=== PATIENT | male | born 1935 | race Caucasian/White ===

== ENCOUNTER 2022-03-13 17:51 | Inpatient (IN) | payer MEDICARE ==
[~2022-03-13] VITALS: Ht 188 cm; Wt 91.0 kg
[2022-03-13] VITALS (9 sets, daily range): BP systolic 88–128; BP diastolic 32–63
--- NOTE | 2022-03-13 18:00 | NUR ---
PATIENT TO ROOM FOR TRIAGE
[2022-03-13 18:21] LABS: HEMATOCRIT 45.8 % (39.0-50.0); HEMOGLOBIN 15.2 g/dl (14.0-18.0); IMMATURE GRANULOCYTES 0.2 % (0.0-5.0); MEAN CELL VOLUME 88.6 fL CALC (80.0-100.0); MEAN CORPUSCULAR HGB 29.4 pG CALC (26.0-32.0); MEAN CORPUSCULAR HGB CONC 33.2 g/dL CAL (32.0-36.0); NEUT# 3.97 thou/uL (1.82-7.42); RED BLOOD COUNT 5.17 mill/uL (4.70-6.10); RED CELL DISTRI WIDTH 13.3 % (11.5-15.5)
--- NOTE | 2022-03-13 18:25 | NUR ---
PT LIVES WITH HIS BROTHER WHO WAS ADMITTED WITH COVID. ABG DONE, PT AT REST IN THE STRETCHER.
[2022-03-13 18:39] LABS: ALBUMIN 4.3 g/dL (3.2-5.0); ALKALINE PHOSPHATASE 71 u/l (38-126); ANION GAP 13 (6-22 (CALC)); BILIRUBIN, TOTAL 0.6 mg/dL (0.0-1.4); BUN 13 mg/dL (8-23); BUN/CREATININE RATIO 10 (12-20 (CALC)); CARBON DIOXIDE 26 mmol/l (22-30); CHLORIDE 101 mmol/l (95-108); CREATININE 1.3 mg/dL (0.7-1.3); GFR FOR AFR.AMER. > 60 ML/MIN (>=60 (CALC)); GFR OTHER RACES 53 ML/MIN (>=60 (CALC)); POTASSIUM 4.3 mmol/l (3.5-5.1); SGOT/AST 26 u/l (19-48); SODIUM 136 mmol/l (137-146)
--- NOTE | 2022-03-13 19:10 | NUR ---
RECEIVED REPORT FROM TWILA HARRIS. PT RESTING ON STRETCHER. O2 VIA NC AT 2L NO DISTRESS.
[2022-03-13] MEDS ORDERED: CALCIU1 PO (20:02)
[2022-03-13] MEDS ORDERED: CO Q-10300 MG PO (20:05)
[2022-03-13] MEDS ORDERED: BUSPIRONE5 MG PO (20:06)
[2022-03-13] MEDS ORDERED: ASPIRIN81 MG PO (20:06)
[2022-03-13] MEDS ORDERED: SINGULAIR10 MG PO ×2 (20:08→20:17)
[2022-03-13] MEDS ORDERED: FISH OIL1000 MG PO (20:09)
[2022-03-13] MEDS ORDERED: APPLE CIDE1 PO (20:09)
[2022-03-13] MEDS ORDERED: D350 MCG PO (20:10)
[2022-03-13] MEDS ORDERED: CRESTOR20 MG PO (20:13)
[2022-03-13] MEDS ORDERED: DONEPEZIL10 MG PO (20:14)
[2022-03-13] MEDS ORDERED: MEMANTINE HYDRO10 MG PO (20:15)
[2022-03-13] MEDS ORDERED: ALLER-TEC PO (20:16)
[2022-03-13] MEDS ORDERED: B121000 MCG PO (20:16)
--- NOTE | 2022-03-13 21:20 | NUR ---
PT AGREES WITH PLAN FOR ADMISSION. TELE BOX 16 IN USE.
--- NOTE | 2022-03-13 21:37 | NUR ---
Admission Note Report Given to: TWILA THOMAS Transported by: X Wheelchair Stretcher Transported with: X Nurse Transporter X Patent IV X O2 X Senior Enterprise Architect Location: ICU X MS2 PT TAKEN TO FLOOR 2124. ROOM ASSIGNMENT CHANGED ON ARRIVAL TO FLOOR. NURSE MITRA NOT AVAILABLE FOR REPORT. REPORT GIVEN TO TWILA THOMAS.
--- NOTE | 2022-03-13 22:00 | NUR ---
PT ARRIVED TO MED SURG VIA WC ACCOMPANIED BY ED NURSE. PT DENIES SOB AT THIS TIME, OXYGEN SAT READING 91% ON 2LNC. OXYGEN INCREASED TO 3L, 02 SAT 93% AT THIS TIME. V/S ASSESSED AND PT ORIENTED TO THE ROOM. IVF ADMINISTERED ORDERS PROVIDE.
--- NOTE | 2022-03-13 23:37 | NUR ---
PT AWAKE AND PROVIDED A PHONE FOR CALL TRANSFER. DENIES ANY OTHER NEEDS. HE IS AWAKE AND WATCHING TV. NO DISTRESS OBSERVED
[2022-03-14] VITALS (9 sets, daily range): BP systolic 82–137; BP diastolic 28–72
--- NOTE | 2022-03-14 01:00 | NUR ---
PT CALLED TO USE RESTROOM. ASSISTED PT STANDBY ONLY TO RESTROOM. LARGE LOOSE STOOL OUTPUT. PT CALLED WHEN FINISHED IN RESTROOM, PATRON ATTENDANT ASSISTED PT BACK TO THE BED.
[2022-03-14 05:46] LABS: IMMATURE GRANULOCYTES 0.3 % (0.0-5.0); MEAN CELL VOLUME 88.6 fL CALC (80.0-100.0); MEAN CORPUSCULAR HGB 29.3 pG CALC (26.0-32.0); MEAN CORPUSCULAR HGB CONC 33.1 g/dL CAL (32.0-36.0); NEUT# 2.57 thou/uL (1.82-7.42); RED BLOOD COUNT 4.47 mill/uL (4.70-6.10); RED CELL DISTRI WIDTH 13.4 % (11.5-15.5)
[2022-03-14 05:55] LABS: HEMATOCRIT 39.6 % (39.0-50.0); HEMOGLOBIN 13.1 g/dl (14.0-18.0)
[2022-03-14 06:32] LABS: ALKALINE PHOSPHATASE 50 u/l (38-126); ANION GAP 10 (6-22 (CALC)); BUN 17 mg/dL (8-23); BUN/CREATININE RATIO 14 (12-20 (CALC)); CARBON DIOXIDE 24 mmol/l (22-30); CHLORIDE 104 mmol/l (95-108); CREATININE 1.2 mg/dL (0.7-1.3); GFR FOR AFR.AMER. > 60 ML/MIN (>=60 (CALC)); GFR OTHER RACES 58 ML/MIN (>=60 (CALC)); POTASSIUM 4.9 mmol/l (3.5-5.1); SGOT/AST 24 u/l (19-48); SODIUM 134 mmol/l (137-146); TOTAL PROTEIN 5.9 g/dL (6.3-8.2)
[2022-03-14 06:48] LABS: ALBUMIN 3.4 g/dL (3.2-5.0); BILIRUBIN, TOTAL 0.3 mg/dL (0.0-1.4)
--- NOTE | 2022-03-14 08:00 | NUR ---
GOT REPORT FROM FOREST SCIENTIST NURSE. PATIENT ASSESSED. ALERT AND ORIENTATED. MEDICATIONS GIVEN. PATIENT HAS CALL LIGHT AND BED SIDE TABLE WITH IN REACH. NO QUESTIONS OR CONCERNS AT THIS TIME. ADVISED PATIENT TO CALL IF NEEDING ANYTHING.
--- NOTE | 2022-03-14 12:00 | NUR ---
PATIENT IS RESTING IN BED NO SXS OF DISTRESS. CALL LIGHT WITH IN REACH. ADVISED TO CALL IF NEEDING ANYTHING. PATIENT VERBALIZED UNDERSTANDING.
--- NOTE | 2022-03-14 16:00 | NUR ---
PATIENT IS RESTING IN BED NO SXS OF DISTRESS. CALL LIGHT WITH IN REACH. ADVISED TO CALL IF NEEDING ANYTHING. PATIENT VERBALIZED UNDERSTANDING.
--- NOTE | 2022-03-14 19:00 | NUR ---
REPORT RECEIVED FROM Janette VELASCO RN
--- NOTE | 2022-03-14 20:45 | NUR ---
ASSESMENT COMPLETED A THIS TIME. PATENT ALERT AND ORIENTED X3, HX OF DEMENTIA, MINIMAL CONFUSION PRESENT AT THIS TIME. NORMAL HEART RATE. CLEAR /DIMMINSHED LUNG SOUNDS, CURRENTLY ON 3L VIA NASAL CANULLA. PATIENT HAS REMOVED CANNULA BUT REMAINS SATURATING 93%. ACTIVE BOWEL SOUNDS, LAST REPORTED BOWEL MOVEMENT 03/12. STATES THIS IS NORMAL FOR HIM, BUT ALSO REPORTS HAVING HAD LOOSE STOOLS THESE PAST FEW DAYS. #20 LAC FLUSHED AND PATENT, CURRENTLY INFUSING NS AT 50ML/HR. PLAN OF CARE REVIEWED WITH PATIENT, EDUCATION PROVIDED ON MEDCIATIONS. CALL LIGHT AND BEDSIDE TABLE WITHIN REACH.
--- NOTE | 2022-03-14 20:51 | NUR ---
MEDICATIONS ADMINISTERED PER EMAR, SEE EMAR.
--- NOTE | 2022-03-14 21:52 | NUR ---
VITALS IN RESPONSE TO ED CALL REGARDING LOW HR FOLLOWS. HR 44, B/P 118/58, SPO2% 93%. PATIENT STATES HE FEELS "FINE". PLACED O2 BACK ON PATIENT, SATURATION QUICKLY RECOVERED TO 96%.
--- NOTE | 2022-03-14 22:00 | NUR ---
CALL RECEIVED FROM ED REAGRDING PATIENTS LOW HR. PATIENT CURRENTLY RUNNING SB 44. V/S OBTAINED A THIS TIME, DR PEREIRA NOTIFIED OF PATIENTS LOW HR. NOTIFIED DR OF PATIENTS HR THROUGHT DAY, PATIENT HAS BEEN ELOISA THROUGHT DAY. PER , HOLD REMDESIVIR.
[2022-03-15] VITALS (9 sets, daily range): BP systolic 119–153; BP diastolic 59–72
--- NOTE | 2022-03-15 00:10 | NUR ---
PATIENT UP TO THE BATHROOM WITH STANDBY ASSITANCE PROVIDED. WIPES PROVIDED TO PATIENT ER PATIENT REQUEST. CALL LIGHT AND BESDIDE TABLE WITHIN REACH.
--- NOTE | 2022-03-15 03:43 | NUR ---
TLEMETRY BATTERY CHABGED WITH NO CHANGE IN BATTERY LIFE, ED UC NOTIFIED. WILL CHANEG TELEMETRY BOX AND BATTERY.
--- NOTE | 2022-03-15 03:47 | NUR ---
PATIENT COMPLAINING OF BLOODY STOOLS. NO STOOLS HAVE BEEN WITNESSED BY STAFF, PATIENT ASKED TO NOT FLUSH, BECAUSE WE MAY NEED A STOOL SAMPLE TO R/O BLOOD.
[2022-03-15 05:25] LABS: HEMATOCRIT 39.6 % (39.0-50.0); HEMOGLOBIN 13.1 g/dl (14.0-18.0); MEAN CELL VOLUME 88.6 fL CALC (80.0-100.0); MEAN CORPUSCULAR HGB 29.3 pG CALC (26.0-32.0); MEAN CORPUSCULAR HGB CONC 33.1 g/dL CAL (32.0-36.0); RED BLOOD COUNT 4.47 mill/uL (4.70-6.10); RED CELL DISTRI WIDTH 13.3 % (11.5-15.5)
[2022-03-15 06:09] LABS: ALBUMIN 3.4 g/dL (3.2-5.0); ALKALINE PHOSPHATASE 57 u/l (38-126); ANION GAP 9 (6-22 (CALC)); BILIRUBIN, TOTAL 0.2 mg/dL (0.0-1.4); BUN 21 mg/dL (8-23); BUN/CREATININE RATIO 19 (12-20 (CALC)); CARBON DIOXIDE 24 mmol/l (22-30); CHLORIDE 107 mmol/l (95-108); CREATININE 1.1 mg/dL (0.7-1.3); GFR FOR AFR.AMER. > 60 ML/MIN (>=60 (CALC)); GFR OTHER RACES > 60 ML/MIN (>=60 (CALC)); POTASSIUM 4.6 mmol/l (3.5-5.1); SGOT/AST 25 u/l (19-48); SODIUM 136 mmol/l (137-146); TOTAL PROTEIN 5.9 g/dL (6.3-8.2)
--- NOTE | 2022-03-15 08:00 | NUR ---
patient is a/ox3, able to make needs known to staff. c/o discomfort on his buttocks, no reddness, or open areas on buttocks. informed him if he got out of bed to the chair it may relieve it. he stated he would like ot shower after breakfast, clean sheets and towels place in room, waiting on a friend to bring in his shampoo. diminshed lung sounds. active bowel movements. soft non tender abdomen. no edema present at this time. strong pulses, o2 4l nc, 98% o2 sats, denies chest pain or SOB. safety measures in place. call light in reach. will cotninue to monitor per hospital's policy.
--- NOTE | 2022-03-15 11:34 | NUR ---
PATIENT TAKING A SHOWER, CLEAN SHEETS ON BED. SAFETY MEASURES IN PLACE. CALL LIGHT IN REACH.
--- NOTE | 2022-03-15 18:00 | NUR ---
PATIENT IS SITTING UP EATING A FRUIT.
--- NOTE | 2022-03-15 19:05 | NUR ---
REPORT RECEIVED FROM Jose J BELLO RN
--- NOTE | 2022-03-15 20:00 | NUR ---
ASSSEMENT COMPLETED AT THIS TIME
--- NOTE | 2022-03-15 20:36 | NUR ---
MEDICATIONS ADMINISTERED PER EAMR, SEE EMAR.
[2022-03-16] VITALS (8 sets, daily range): BP systolic 113–134; BP diastolic 59–61
--- NOTE | 2022-03-16 | NUR ---
PATIENT VITALS ASSESED AT THIS TIME. PATIETN CONTINUES TO BE BRADYCARDIC. RUNNING SB IN THE 40S AND HIGH 30'S. PATIENT ASYMPTOMATIC AND DENIES FEELING LIGHT HEADED OR WEAK. WILL CONTINUE TOMONITOR PATIENT HR.
--- NOTE | 2022-03-16 03:10 | NUR ---
NOTIFIED DR PEREIRA REGARDING PATIENTS STATUS. HR REMAINS ELOISA. PER MD CONTINUE TO MONITOR PATIENT, IT PATIENT HR DROPS BELOW 30 , TRANSFER PATIENT TO ICU. CURRENTLY PATIENT IS 46
--- NOTE | 2022-03-16 07:50 | NUR ---
PT RESTING IN LOW FOWLERS POSITION. A/OX3 NIGHT REPORT PT HISTORY OF DEMENTIA. IV SITE TO [facility]. HEART RHYTHM SOUND DIMISHED.. RESPIRATIONS UNLABORED. BOWEL SOUNDS ACTIVE. PT DENIES ADDITONAL NEEDS ALL SAFETY PRECAUTIONS IN PLACE.
[2022-03-16 09:46] LABS: HEMOGLOBIN 13.5 g/dl (14.0-18.0); MEAN CELL VOLUME 86.8 fL CALC (80.0-100.0); MEAN CORPUSCULAR HGB 29.3 pG CALC (26.0-32.0); MEAN CORPUSCULAR HGB CONC 33.8 g/dL CAL (32.0-36.0); NEUT# 3.64 thou/uL (1.82-7.42); RED BLOOD COUNT 4.61 mill/uL (4.70-6.10); RED CELL DISTRI WIDTH 13.5 % (11.5-15.5)
[2022-03-16 10:48] LABS: ANION GAP 11 (6-22 (CALC)); BUN 20 mg/dL (8-23); BUN/CREATININE RATIO 20 (12-20 (CALC)); CARBON DIOXIDE 23 mmol/l (22-30); CHLORIDE 106 mmol/l (95-108); GFR FOR AFR.AMER. > 60 ML/MIN (>=60 (CALC)); GFR OTHER RACES > 60 ML/MIN (>=60 (CALC)); POTASSIUM 4.1 mmol/l (3.5-5.1); SODIUM 136 mmol/l (137-146)
--- NOTE | 2022-03-16 12:42 | NUR ---
ON CONTINUOUS PULSE OX TO BE MONITORED PER TELE . PT ON 2L NC.
--- NOTE | 2022-03-16 15:52 | NUR ---
PT DENIES ADDITIONAL NEEDS AT THE TIME ALL SAFETY PRECAUTIONS IN PLACE.
--- NOTE | 2022-03-16 20:15 | NUR ---
PT STARTED WALKING OUT OF THE ROOM TO 'WALK THE HALLS". HE WAS ASKED TO STAY IN HIS ROOM, EXPLAINING TO HIM REASONS DUE TO COVID POS. HE WAS VERY COOPERATIVE AND UNDERSTANDING AND JUST VERBALIZED BEING "STIR CRAZY AND BORED." SNACK AND DRINK PROVIDED.
--- NOTE | 2022-03-16 20:40 | NUR ---
PT ASSESSED AND MEDICATED ORDERS PROVIDE. LUNG SOUNDS REMAIN COURSE UPPER BILAT. OXYGEN 3L NC, SAT LEVEL AT 94%
[2022-03-17] VITALS (71 sets, daily range): BP systolic 86–211; BP diastolic 42–170
--- NOTE | 2022-03-17 03:15 | NUR ---
ED NOTIFIED UNIT THAT PT'S HR IS 33 SUSTAINING. PHYSICIAN CALLED, ORDERS FOR TRANSFER TO ICU FOR CLOSE MONITORING. PT TRANSFERRED TO ICU. STABLE AT TIME OF ARRIVAL.
--- NOTE | 2022-03-17 06:27 | NUR ---
SHIFT ASSESSMENT - TO ALERT AND ORIENTED. FOLLOWING COMMANDS. WAS TRANSFERRED TO ICU OVERNIGHT DUE TO SEVERE BRADYCARDIA. BLOOD PRESSURE WITHIN NORMAL LIMITS. PT ON 3L NC, O2 SAT 92%. PT DOES NOT LOOK TO BE IN ANY DISTRESS. PT DENIES PAIN AT THIS HA. VITAL SIGNS ARE WITHIN NORMAL LIMITS.
[2022-03-17 06:49] LABS: HEMATOCRIT 37.7 % (39.0-50.0); HEMOGLOBIN 12.5 g/dl (14.0-18.0); IMMATURE GRANULOCYTES 0.2 % (0.0-5.0); MEAN CELL VOLUME 87.7 fL CALC (80.0-100.0); MEAN CORPUSCULAR HGB 29.1 pG CALC (26.0-32.0); MEAN CORPUSCULAR HGB CONC 33.2 g/dL CAL (32.0-36.0); NEUT# 3.11 thou/uL (1.82-7.42); RED BLOOD COUNT 4.3 mill/uL (4.70-6.10); RED CELL DISTRI WIDTH 13.4 % (11.5-15.5)
[2022-03-17 07:20] LABS: ALBUMIN 3.3 g/dL (3.2-5.0); ALKALINE PHOSPHATASE 45 u/l (38-126); BUN 21 mg/dL (8-23); BUN/CREATININE RATIO 19 (12-20 (CALC)); CHLORIDE 104 mmol/l (95-108); CREATININE 1.1 mg/dL (0.7-1.3); GFR FOR AFR.AMER. > 60 ML/MIN (>=60 (CALC)); GFR OTHER RACES > 60 ML/MIN (>=60 (CALC)); POTASSIUM 4.3 mmol/l (3.5-5.1); SGOT/AST 25 u/l (19-48); SODIUM 137 mmol/l (137-146); TOTAL PROTEIN 5.6 g/dL (6.3-8.2)
--- NOTE | 2022-03-17 07:23 | NUR ---
RECEIVED REPORT FROM TWILA Park. CHECKED IN ON JOHN, AX0=4. PATIENT RESTING IN SITTING POSTITON, NC REPOSTIONED AND LEADS IN PLACE. BED IN LOWEST POSITION AND LOCKED. CALL LIGHT WITHIN REACH.
[2022-03-17 07:54] LABS: ANION GAP 8 (6-22 (CALC)); BILIRUBIN, TOTAL 0.4 mg/dL (0.0-1.4); CARBON DIOXIDE 29 mmol/l (22-30)
--- NOTE | 2022-03-17 08:18 | NUR ---
CARDIAC CONSULT REQUESTED AT DR. PUCKETT'S OFFICE 08:15.
--- NOTE | 2022-03-17 10:00 | NUR ---
PATIENT ALERT AND ORIENTED WATCHING TELEVISON. CALL LIGHT WITHIN REACH BED LOCKED IN LOWEST POSITION.
--- NOTE | 2022-03-17 10:30 | NUR ---
PATIENT REMOVED IV, NEW 20G N LFA PLACED, RUNNING NS@50
--- NOTE | 2022-03-17 11:05 | NUR ---
PATIENT ALERT AND ORIENTED, RUNNING IV FLUIDS. IV PATENT.BED LOCKED AND IN LOWEST POSITION. CALL LIGHT WITHIN REACH.
--- NOTE | 2022-03-17 11:25 | NUR ---
Treatment held due to medical status and transfer to ICU. Will follow per MD order to resume PT.
--- NOTE | 2022-03-17 12:35 | NUR ---
PATIENT HAS REMOVED 2ND IV SINCE SHIFT. PER MD, WILL DC FLUIDS AND PLACE ANOTHER IV. PATIENT AXO=4 RESTLESS BUT COOPERATIVE. SITTING UP IN CHAIR FOR LUNCH. CALL LIGHT WITHIN REACH.
--- NOTE | 2022-03-17 13:35 | NUR ---
PATIENT SITTING IN CHAIR. RT PERFORMED WALK TEST AND PATIENT WENT BACK TO CHAIR. ALERT AND OREINTED, CALM AND COOPERATIVE. CALL LIGHT WITHIN REACH.
--- NOTE | 2022-03-17 16:00 | NUR ---
PATIENT BACK IN BED, PRIETO'S POSITION. A X O=3 CALM AND COOPERATIVE. BED LOCKED IN LOWEST POSITION. NC REPOSITIONED. PATIENT EDUCATED ON KEEPING NASAL CANNULA IN PLACE. CALL LIGHT WITHIN REACH.
--- NOTE | 2022-03-17 17:00 | NUR ---
PATIENT IN BED FOWLERS POSTION EATING. PATIENT REMOVED 3RD IV. AXO =3, BEHAVIOR IS RESTLESS AND IMPULSIVE. BED IN LOWEST POSITION AND LOCKED. CALL LIGHT WITHIN REACH.
--- NOTE | 2022-03-17 20:00 | NUR ---
PATIENT RESTING IN BED ALERT AND ORIENTED X 3 AT THIS TIME. PATIENT DENIES ANY PAIN AND O2 IS ON AT 3L AT THIS TIME SPO2 IS CURRENTLY 95%. PATIENT LUNG BURROUGHS ARE CLEAR IN UPPER AND DIMINISHED IN LOWER BURROUGHS. EGG SETTER IS READING SINUS ELOISA AT 46 AND BP IS CURRENTLY 122/65. DR. LOPEZ IS AWARE OF PATIENTS SINUS ELOISA STATUS AT THIS TIME. SIDERAILS ARE UP CALL LIGHT IS WIHTIN REACH. WILL CONTINUE TO MONITOR.
[2022-03-18] VITALS (57 sets, daily range): BP systolic 104–161; BP diastolic 51–122
--- NOTE | 2022-03-18 00:10 | NUR ---
PATIENT FOUND OUT OF BED ALERT AND ORIENTED X 3 PATIENT STATED HE IS TIRED OF "WIRES HOOKED TO HIM" PATIENT STARTED PULLING WORSTED WINDER WIRES OFF. PATIENT ASKED TO STOP AND ALLOW THIS NURSE TO HELP AND PATIENT BECAME AGGRESSIVE AND YELLING STATING "I DON'T KNOW WHY I HAVE TO HAVE THESE ON". PATIENT EDUCATED ON IMPORTANCE OF MONITORING HIS HEART RATE AND O2 PATIENT THEN AGREED TO CONTINUE WITH MONITORING IN PLACE. PATIENT REPOSTIONED IN BED SIDERAILS UP AND CALL LIGHT WITHIN REACH. 02 REMAINS ON AT 3L AND SPO2 IS CURRENTLY 98% AND PATIENT WORSTED WINDER READING SINUS ELOISA 36 WILL CONTINUE TO MONITOR.
--- NOTE | 2022-03-18 02:08 | NUR ---
PATIENT RESTING IN BED AT THIS TIME. CUSTOMER SERVICE OPERATOR SHOWING SINUS ELOISA AND HR IS 37 SPO2 CURRENTLY 97 % ON 3 LITERS. SIDERAIL ARE UP X 2 CALL LIGHT IS WITHIN REACH.
--- NOTE | 2022-03-18 04:09 | NUR ---
PATIENT RESTING IN BED WIHT EYES CLOSED RESPIRATIONS EASY AND UNLABORED AT THIS TIME. CARDIC MONTIOR IS READING SB HR OF 38. SIDERAILS ARE UP CALL LIGHT IS WITHIN REACH.
--- NOTE | 2022-03-18 06:00 | NUR ---
PATIENT ASSISTED TO BATHROOM AND RETURNED BACK TO BED AT THIS TIME. LOAN EXPEDITOR READING SINUS ELOISA AND HR OF 40 BP IS CURRENTLY 139/68 02 REMAINS ON AT 3 LITERS AND SPO2 IS CURRENTLY 96. PATIENT DENIES ANY PAIN AND OR NEEDS AT THIS TIME. SIDERAILS ARE UP CALL LIGHT NEAR WILL CONTINUE TO MONITOR.
[2022-03-18 06:40] LABS: HEMATOCRIT 41.1 % (39.0-50.0); HEMOGLOBIN 13.6 g/dl (14.0-18.0); IMMATURE GRANULOCYTES 0.2 % (0.0-5.0); MEAN CELL VOLUME 89.2 fL CALC (80.0-100.0); MEAN CORPUSCULAR HGB 29.5 pG CALC (26.0-32.0); MEAN CORPUSCULAR HGB CONC 33.1 g/dL CAL (32.0-36.0); NEUT# 3.2 thou/uL (1.82-7.42); RED BLOOD COUNT 4.61 mill/uL (4.70-6.10); RED CELL DISTRI WIDTH 13.3 % (11.5-15.5)
[2022-03-18 07:20] LABS: ALBUMIN 3.2 g/dL (3.2-5.0); ALKALINE PHOSPHATASE 43 u/l (38-126); ANION GAP 9 (6-22 (CALC)); BUN 21 mg/dL (8-23); BUN/CREATININE RATIO 24 (12-20 (CALC)); C-REACTIVE PROTEIN < 0.5 mg/dL (0-0.9); CARBON DIOXIDE 26 mmol/l (22-30); CHLORIDE 105 mmol/l (95-108); CREATININE 0.8 mg/dL (0.7-1.3); GFR FOR AFR.AMER. > 60 ML/MIN (>=60 (CALC)); GFR OTHER RACES > 60 ML/MIN (>=60 (CALC)); POTASSIUM 4.3 mmol/l (3.5-5.1); SGOT/AST 25 u/l (19-48); SODIUM 135 mmol/l (137-146); TOTAL PROTEIN 5.4 g/dL (6.3-8.2)
[2022-03-18 07:23] LABS: BILIRUBIN, TOTAL 0.6 mg/dL (0.0-1.4)
--- NOTE | 2022-03-18 09:13 | NUR ---
PT AWAKE, ALERT, ORIENTED X 3, NO COMPLAINTS. HR REMAINS IN THE 40s MOSTLY, BUT PT ASYMPTOMATIC. DR LOPEZ IN ROOM NOW.
--- NOTE | 2022-03-18 13:25 | NUR ---
PCXR DONE, PT UPDATED ON RESULTS. PT UP TO BSC, BM THIS MORNING. PT REMAINS ASYMPTOMATIC WITH HIS BRADYCARDIA.
--- NOTE | 2022-03-18 16:09 | NUR ---
PT PLEASED TO HAVE SPOKEN WITH HIS BROTHER VEEJAIDEN ON M/S. PT REMAINS IN NO DISTRESS. MEAL MENU PROVIDED FOR HIM TO HAVE MORE CHOICE IN HIS MEALS.
--- NOTE | 2022-03-18 17:21 | NUR ---
PT CONTINUES BRADYCARDIC AT RATE OF 38-40, COMPLETELY ASYMPTOMATIC. OXYGEN ARRIVES FROM [facility], PLACED IN ROOM.
--- NOTE | 2022-03-18 20:05 | NUR ---
PATIENT RESTING IN BED AT THIS TIME. PATIENT ALERT AND ORIENTED X 3 AND DENIES ANY PAIN. PATIENT PRESENTS WITH LUNG BURROUGHS CLEAR AND 02 ON AT 3L AND SPO2 IS CURRENTLY 91% AT THIS TIME. C.O.D. AUDIT CLERK IS READING SINUS ELOISA AND HR OF 51 BP IS CURRENTLY 141/73. PATIENT STATE WHEN ASKED DID YOUR RECEIVE A BATH TODAY PATIENT STATED "NO" BATH WAS OFFERED TO BE DONE AND PATIENT STATED " I WILL WAIT UNTIL TOMORROW". PATIENT PRESENTS WITHOUT SHORTNESS OF BREATH AND USING URINAL AT BEDSIDE AND CLEAR YELLOW URINE NOTED. SIDERAILS ARE UP CALL LIGHT IS WITHIN REACH WILL CONTINUE TO MONITOR.
--- NOTE | 2022-03-18 21:08 | NUR ---
PATIENT GIVEN 650MG OF TYLENOL AT THIS TIME DUE TO PATIENT STATING "I HAVE A HEADACHE AND MY PAIN LEVEL IS A 4 OUT OF PAIN SCALE OF 0-10. WILL CONTINUE TO MONITOR.
--- NOTE | 2022-03-18 22:01 | NUR ---
PATIENT RESTING IN BED AT THIS TIME STATES HIS HEADACHE IS GONE AT THIS TIME AND HIS PAIN IS A "0" ON THE PAIN SCALE OF 0-10. MD PEDIATRIC ALLERGIST IS READING SINUS ELOISA AND HR OF 41 BP IS CURRENTLY 128/54 O2 IS ON AT 3L AND SPO2 IS CURRENTLY 91%. SIDERAILS ARE UP CALL LIGHT IS WITHIN REACH.
[2022-03-19] VITALS (7 sets, daily range): BP systolic 111–135; BP diastolic 48–60
--- NOTE | 2022-03-19 00:08 | NUR ---
PATIENT RESTING IN BED DENIES ANY NEEDS SPO2 IS 96% ON 3L OF O2 VIA NASAL CANNULA. DENEIS ANY PAIN ALARM INSTALLATION TECHNICIAN READING SB AND HR OF 36 AND BP IS 117/48 WITH A MAP OF 71. SIDERAILS ARE UP CALL LIGHT IS WITHIN REACH.
--- NOTE | 2022-03-19 02:00 | NUR ---
PATIENT RESTING IN BED WIHT EYES CLOSED RESPIRATIONS EASY AND UNLABORED O2 ON 3L PULSE ON 95% BP IS 125/60 HYDRATE THICKENER OPERATOR SHOWING HR OF 39 AND SINUS ELOISA WILL CONTINUE TO MONITOR.
--- NOTE | 2022-03-19 03:58 | NUR ---
PATIENT AWAKE AT BEDSIDE AT THIS TIME. PATIENT DENIES ANY NEEDS CURRENTLY. O2 REMAINS IN PLACE AND ON 3L NASAL CANNULA. STOCK PATCHER READING SINUS ELOISA AND HR IS CURRENTLY 45. SIDERAILS ARE UP CALL LIGHT IS WIHTIN REACH.
--- NOTE | 2022-03-19 06:08 | NUR ---
PATIENT RESTING IN BED WITH EYES CLOSED RESPIRATIONS EASY AND UNLABORED. WATCH ASSEMBLY INSPECTOR READING SB AT 38 BP IS CURRENTLY 135/59 O2 REMAINS ON AT 2L NASAL CANNULA 91% SIDERAILS ARE UP CALL LIGHT IS WITHIN REACH.
[2022-03-19] MEDS ORDERED: DOXYCYCLINE HY100 MG PO (09:16)
[2022-03-19] MEDS ORDERED: DEXAMETHASON6 MG PO (09:16)
== END 2022-03-19 10:55 | disposition home or self-care (01) | DRG 177 ==
LOC: ED 17:51 → ED-I 19:57 → ED 20:33 → MS2 20:34 → ICU 03-17 04:00
PROVIDERS: Family Medicine; Nurse Practitioner; ADMIT Internal Medicine; ATTEND Internal Medicine
PROC: XW033E5 Introduction of Remdesivir Anti-infective into Peripheral Vein, Percutaneous Approach, New Technology Group 5 (ICD-10-PCS; principal; 2022-03-14)
DX: U07.1 COVID-19 (principal); J96.01 Acute respiratory failure with hypoxia; I10 Essential (primary) hypertension; F03.90 Unspecified dementia, unspecified severity, without behavioral disturbance, psychotic disturbance, mood disturbance, and anxiety; F41.9 Anxiety disorder, unspecified; R00.1 Bradycardia, unspecified; T37.5X5A Adverse effect of antiviral drugs, initial encounter; I25.10 Atherosclerotic heart disease of native coronary artery without angina pectoris; T36.3X5A Adverse effect of macrolides, initial encounter; I35.2 Nonrheumatic aortic (valve) stenosis with insufficiency; Z86.73 Personal history of transient ischemic attack (TIA), and cerebral infarction without residual deficits
CPT/HCPCS: J1650; Q9967

== ENCOUNTER 2022-07-10 11:34 | Emergency (ER) | payer MEDICARE ==
[~2022-07-10] VITALS: Ht 188 cm; Wt 75.0 kg
[~2022-07-10 11:34] MED LIST: ALLER-TEC PO; APPLE CIDE1 PO; ASPIRIN81 MG PO; B121000 MCG PO; BUSPIRONE5 MG PO; CALCIU1 PO; CO Q-10300 MG PO; CRESTOR20 MG PO; D350 MCG PO; DEXAMETHASON6 MG PO; DONEPEZIL10 MG PO; DOXYCYCLINE HY100 MG PO; FISH OIL1000 MG PO; MEMANTINE HYDRO10 MG PO; SINGULAIR10 MG PO
[2022-07-10 11:40] VITALS: BP 119/68
[2022-07-10 11:45] VITALS: BP 113/62
[2022-07-10 12:14] LABS: HEMATOCRIT 41.1 % (39.0-50.0); MEAN CELL VOLUME 88.4 fL CALC (80.0-100.0); MEAN CORPUSCULAR HGB 30.1 pG CALC (26.0-32.0); MEAN CORPUSCULAR HGB CONC 34.1 g/dL CAL (32.0-36.0); NEUT# 6.03 thou/uL (1.82-7.42); RED BLOOD COUNT 4.65 mill/uL (4.70-6.10); RED CELL DISTRI WIDTH 12.1 % (11.5-15.5)
[2022-07-10 12:26] LABS: ANION GAP 12 (6-22 (CALC)); BUN 15 mg/dL (8-23); BUN/CREATININE RATIO 14 (12-20 (CALC)); CARBON DIOXIDE 27 mmol/l (22-30); CHLORIDE 100 mmol/l (95-108); CREATININE 1.1 mg/dL (0.7-1.3); GFR FOR AFR.AMER. > 60 ML/MIN (>=60 (CALC)); GFR OTHER RACES > 60 ML/MIN (>=60 (CALC)); POTASSIUM 4.1 mmol/l (3.5-5.1); SGOT/AST 34 u/l (19-48); SODIUM 135 mmol/l (137-146)
[2022-07-10 12:28] LABS: ALBUMIN 4.2 g/dL (3.2-5.0); ALKALINE PHOSPHATASE 67 u/l (38-126); TOTAL PROTEIN 7.2 g/dL (6.3-8.2)
[2022-07-10 13:23] VITALS: BP 115/68
[2022-07-10 14:00] VITALS: BP 124/67
[2022-07-10 14:10] LABS: URINE BLOOD DIPSTICK SMALL (NEGATIVE); URINE GLUCOSE - DIPSTICK NEGATIVE (NEGATIVE); URINE KETONE TRACE mg/dL (NEGATIVE); URINE LEUK ESTERASE TRACE (NEGATIVE); URINE PH 5.5 (4.5-8.0); URINE PROTEIN - DIPSTICK NEGATIVE (NEG-TRACE); URINE SPECIFIC GRAVITY 1.025; URINE UROBILINOGEN - DIPSTICK 0.2 E.U./dL (0.2)
[2022-07-10 14:14] LABS: URINE BILIRUBIN - DIPSTICK SMALL (NEGATIVE); URINE COLOR DK. YELLOW; URINE NITRITE - DIPSTICK NEGATIVE (Negative)
[2022-07-10 14:15] LABS: URINE MUCUS FEW hpf (NONE-FEW); URINE WBC 0-2 WBC/hpf (0-5)
[2022-07-10] MEDS ORDERED: VIBRAMYCIN100 M2 PO (14:47)
[2022-07-10 16:00] VITALS: BP 129/66
[2022-07-10 16:11] VITALS: BP 129/66
== END 2022-07-10 16:24 | disposition home or self-care (01) ==
LOC: ED 11:34
PROVIDERS: Family Medicine
DX: J18.9 Pneumonia, unspecified organism (principal); I10 Essential (primary) hypertension; Z86.73 Personal history of transient ischemic attack (TIA), and cerebral infarction without residual deficits; Z20.822 Contact with and (suspected) exposure to COVID-19

== ENCOUNTER 2022-09-07 15:16 | Emergency (ER) | payer MEDICARE ==
[~2022-09-07] VITALS: Ht 188 cm; Wt 87.9 kg
[~2022-09-07 15:16] MED LIST changes: +VIBRAMYCIN100 M2 PO
[2022-09-07 16:32] LABS: BASO% 0.4 % (0-3); EOS% 1.6 % (0-8); HEMATOCRIT 42.2 % (39.0-50.0); HEMOGLOBIN 13.7 g/dl (14.0-18.0); IMMATURE GRANULOCYTES 0.4 % (0.0-5.0); LYMPH% 18.4 % (15-41); MEAN CELL VOLUME 88.3 fL CALC (80.0-100.0); MEAN CORPUSCULAR HGB 28.7 pG CALC (26.0-32.0); MEAN CORPUSCULAR HGB CONC 32.5 g/dL CAL (32.0-36.0); MONO% 5.8 % (2-13); NEUT# 7.56 thou/uL (1.82-7.42); NEUT% 73.4 % (42-76); RED BLOOD COUNT 4.78 mill/uL (4.70-6.10); RED CELL DISTRI WIDTH 13.2 % (11.5-15.5)
[2022-09-07 16:46] LABS: ALBUMIN 4.2 g/dL (3.2-5.0); ALKALINE PHOSPHATASE 67 u/l (38-126); ANION GAP 9 (6-22 (CALC)); BUN 18 mg/dL (8-23); BUN/CREATININE RATIO 14 (12-20 (CALC)); CARBON DIOXIDE 26 mmol/l (22-30); CHLORIDE 106 mmol/l (95-108); CREATININE 1.3 mg/dL (0.7-1.3); GFR FOR AFR.AMER. > 60 ML/MIN (>=60 (CALC)); GFR OTHER RACES 53 ML/MIN (>=60 (CALC)); POTASSIUM 4.2 mmol/l (3.5-5.1); SGOT/AST 32 u/l (19-48); SODIUM 137 mmol/l (137-146); TOTAL PROTEIN 7.1 g/dL (6.3-8.2)
[2022-09-07 16:47] LABS: BILIRUBIN, TOTAL 0.4 mg/dL (0.2-1.3)
[2022-09-07 16:48] LABS: PROTHROMBIN TIME 10.4 SECONDS (9.0-12.5)
[2022-09-07 17:58] LABS: URINE BILIRUBIN - DIPSTICK NEGATIVE (NEGATIVE); URINE BLOOD DIPSTICK NEGATIVE (NEGATIVE); URINE CLARITY CLEAR; URINE COLOR YELLOW; URINE GLUCOSE - DIPSTICK NEGATIVE (NEGATIVE); URINE KETONE TRACE mg/dL (NEGATIVE); URINE LEUK ESTERASE NEGATIVE (Negative); URINE NITRITE - DIPSTICK NEGATIVE (Negative); URINE PROTEIN - DIPSTICK NEGATIVE (NEG-TRACE); URINE SPECIFIC GRAVITY >=1.030; URINE UROBILINOGEN - DIPSTICK 0.2 E.U./dL (0.2)
[2022-09-07] MEDS ORDERED: HYDROCO/APAP1 TA9 PO (20:28)
[2022-09-07 20:34] VITALS: BP 132/84
== END 2022-09-07 20:45 | disposition home or self-care (01) ==
LOC: ED 15:16
PROVIDERS: Nurse Practitioner
DX: S42.022A Displaced fracture of shaft of left clavicle, initial encounter for closed fracture (principal); S30.1XXA Contusion of abdominal wall, initial encounter; S00.01XA Abrasion of scalp, initial encounter; S50.312A Abrasion of left elbow, initial encounter; S80.812A Abrasion, left lower leg, initial encounter; I10 Essential (primary) hypertension; V18.0XXA Pedal cycle driver injured in noncollision transport accident in nontraffic accident, initial encounter; Y93.55 Activity, bike riding; Z86.73 Personal history of transient ischemic attack (TIA), and cerebral infarction without residual deficits
CPT/HCPCS: Q9967